=== PATIENT | female | born 1960 | race Caucasian/White ===

== ENCOUNTER 2017-03-24 23:36 | Emergency (ER) | payer OTHER ==
[~2017-03-24] VITALS: Ht 162.6 cm; Wt 91.4 kg
[2017-03-24 23:41] VITALS: BP 135/81; PULSE 69; RESP 16; O2SAT 98
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
[2017-03-25] MEDS ORDERED: IBUP400T22 PO (01:10)
[2017-03-25 01:39] VITALS: BP 119/64; PULSE 73; RESP 18; O2SAT 96
--- NOTE | 2017-03-25 09:04 | DRSVH ---
PROCEDURE: X-RAY RIGHT WRIST COMPLETE, MINIMUM THREE VIEWS ([id number]) INDICATIONS: pain TECHNIQUE: 4 views of the wrist were acquired. COMPARISON: None. FINDINGS: Bones: Distal ulnar is present in degenerative radiocarpal and MCP joint space narrowing is present. No visualized fractures. Scaphoid view: No visualized fractures. Soft tissues: No suspicious soft tissue calcifications. IMPRESSION: No visualized acute fracture or dislocation. However, if clinical concern and/or pain pe rsist, short interval imaging followup in 7-10 days is recommended, as occult injury cannot be defini tively excluded. Dictated by: Shavonne Pathak M.D. on 03/25/2017 at 9:02 Approved by: Shavonne Pathak M.D. on 03/25/2017 at 9:03
--- NOTE | 2017-03-25 09:05 | DRSVH ---
PROCEDURE: X-RAY RIGHT ANKLE, MINIMUM THREE VIEWS ([id number]) INDICATIONS: pain TECHNIQUE: 3 views of the ankle were acquired. COMPARISON: None. FINDINGS: Bones: Midfoot surgical fixation is present. Surgical screw is intact. No visualized acute fracture. Calcaneal spur is present. Soft tissues: Mild lateral malleolar edema. Achilles tendon appears normal. IMPRESSION: No visualized acute fracture or dislocation. However, if clinical concern and/or pain pe rsist, short interval imaging followup in 7-10 days is recommended, as occult injury cannot be defini tively excluded. Dictated by: Shavonne Pathak M.D. on 03/25/2017 at 9:03 Approved by: Shavonne Pathak M.D. on 03/25/2017 at 9:04
--- NOTE | 2017-03-25 09:06 | DRSVH ---
PROCEDURE: X-RAY RIGHT FOOT COMPLETE, MINIMUM THREE VIEWS ([id number]) INDICATIONS: fall TECHNIQUE: 3 views of the foot were acquired. COMPARISON: [facility], CR, XR ANKLE 3VW RT, 03/25/2017, 0:21. FINDINGS: Bones: No fractures or dislocations. No suspicious bony lesions. Mid foot fixation is present. Soft tissues: No tibiotalar joint effusion. Achilles tendon appears normal. IMPRESSION: No visualized acute fracture or dislocation. However, if clinical concern and/or pain pe rsist, short interval imaging followup in 7-10 days is recommended, as occult injury cannot be defini tively excluded. Dictated by: Shavonne Pathak M.D. on 03/25/2017 at 9:04 Approved by: Shavonne Pathak M.D. on 03/25/2017 at 9:05
== END 2017-03-25 01:42 | disposition home or self-care (01) ==
LOC: SED 23:36
DX: S63.591A Other specified sprain of right wrist, initial encounter (principal); S93.491A Sprain of other ligament of right ankle, initial encounter; S90.31XA Contusion of right foot, initial encounter; W10.1XXA Fall (on)(from) sidewalk curb, initial encounter; Y93.89 Activity, other specified; Y92.480 Sidewalk as the place of occurrence of the external cause; Y99.8 Other external cause status; Z87.81 Personal history of (healed) traumatic fracture; Z91.040 Latex allergy status; Z88.2 Allergy status to sulfonamides; Z88.5 Allergy status to narcotic agent
CPT/HCPCS: 29515; 73110; 73610; 73630; 96372; 99284; J1885